=== PATIENT | female | born 1995 | race African-American/Black ===

== ENCOUNTER 2020-02-13 17:23 | Emergency (ER) | payer MEDICAID ==
[~2020-02-13] VITALS: Ht 172.7 cm; Wt 73.0 kg
[2020-02-13] MEDS ORDERED: SODIUM CHLORIDE 0.9% 1,000 ML IV ONE (18:10)
[2020-02-13 18:26] LABS: BASOPHILS % 0.9 % (0.0-2.0); EOSINOPHILS % 1.8 % (0.0-5.0); HEMATOCRIT. 32.9 % (36.0-48.0); HEMOGLOBIN. 10.7 g/dL (12.0-16.0); LYMPHOCYTES % 46.5 % (20.0-50.0); MEAN CORPUSCULAR HEMOGLOBIN 25.3 pg (28.0-32.0); MEAN PLATELET VOLUME 7.6 fl (7.4-10.4); MONOCYTES % 4.9 % (2.0-8.0); NEUTROPHILS % 45.9 % (40.0-76.0); PLATELET 308 x1000/uL (130-400); RED BLOOD CELL COUNT 4.21 mill/uL (4.2-5.4)
[2020-02-13 18:29] LABS: CLARITY URINE CLEAR (CLEAR); COLOR URINE YELLOW (YELLOW); KETONES URINE TRACE (NEGATIVE); LEUKOCYTE ESTERASE URINE 2+ (NEGATIVE); NITRITE URINE NEGATIVE (NEGATIVE); OCCULT BLOOD URINE TRACE (NEGATIVE); PH URINE 5.5 (4.5-8.0); PROTEIN URINE 1+ (NEGATIVE)
[2020-02-13 18:33] LABS: CHLORIDE 113 mEq/L (98-107)
[2020-02-13 18:37] LABS: ETHANOL BLOOD 77 mg/dL
[2020-02-13 18:55] LABS: *AMPHETAMINES SCREEN URINE NEGATIVE (NEGATIVE); *BARBITURATES SCREEN URINE NEGATIVE (NEGATIVE); *BENZODIAZEPINES SCREEN URINE NEGATIVE (NEGATIVE)
[2020-02-13 18:56] LABS: METHADONE URINE SCREEN NEGATIVE (NEGATIVE); OPIATES URINE SCREEN NEGATIVE (NEGATIVE)
[2020-02-13 19:01] LABS: *COCAINE SCREEN URINE PRESUMTIVE POSITIVE (NEGATIVE); CANNABINOID URINE SCREEN PRESUMTIVE POSITIVE (NEGATIVE); PHENCYCLIDINE URINE SCREEN PRESUMTIVE POSITIVE (NEGATIVE)
[2020-02-14 16:32] VITALS: BP 131/93
== END 2020-02-14 16:57 | disposition home or self-care (01) ==
LOC: ER 17:23 → EDBD 17:23 → ER 02-14 16:57
DX: T40.5X1A Poisoning by cocaine, accidental (unintentional), initial encounter (principal); T40.991A Poisoning by other psychodysleptics [hallucinogens], accidental (unintentional), initial encounter; R41.82 Altered mental status, unspecified; F14.188 Cocaine abuse with other cocaine-induced disorder; F16.188 Hallucinogen abuse with other hallucinogen-induced disorder; E87.6 Hypokalemia; Z71.51 Drug abuse counseling and surveillance of drug abuser; Y92.480 Sidewalk as the place of occurrence of the external cause; Z59.0 Homelessness
CPT/HCPCS: 36415; 70450; 80053; 80305; 80307; 80320; 80329; 81003; 81025; 85025; 99285; J7030; G0480